=== PATIENT | female | born 1940 | race Two or more races ===

== ENCOUNTER 2017-06-18 23:17 | Inpatient (IN) | payer OTHER ==
[~2017-06-18] VITALS: Ht 154.9 cm; Wt 129.7 kg
[~2017-06-18 23:17] MED LIST: Atrovent 0.02% (0.5 MG/2.5 ML AMPUL) IH; BENZONATATE200 M1 PO; CARDIZEM CD 240 MG PO; CARDIZEM CD240 MG; CARDIZEM CD360 MG; CARTIA XT240 MG PO; CARdura 2MG TABLET PO; CARdura PO; CLOTRIMAZOLE10 MG MM; COMMODE; COUMADIN1 MG; COUMADIN2 MG; COUMADIN3 MG PO; COUMADIN5 MG PO; COUMAdin PO; COZAAR PO; Cozaar PO; DERMOPLAST TP; FLUCONAZOLE100 MG PO; FUROSEMIDE20 MG PO; GLIPIZIDE10 MG; GLIPIZIDE10 MG PO; HYDROCODONE-CHLORPH SUSP 115ML PO; HumaLOG 100 UNIT/1 ML (3ML) SUBCUTANEO; IMDUR 60MG60 MG; INDUSTRIAL EYE15 ML; ISOSORBIDE MONO30 MG PO; Imdur 30MG PO; Imdur 60MG PO; LANTUS100 U/ML; LASIX20 MG; LEVAQUIN D IV; LORATADINE10 MG PO; LOSARTAN POTASS50 MG PO; LOTRIMIN TP; Lantus 1000 U/10 ML SUBCUTANEO; Lasix 20MG TAB PO; METHYLPRED4 MG/DOSE- PO; METOLAZONE5 MG PO; NEURONTIN300 MG; NEURONTIN300 MG PO; NEURONTIN600 MG; Neurontin PO; Nystatin TP; ORPH100T PO; PANTOPRAZOLE SO40 MG PO; PROTONIX40 MG PO; Pulmicort 0.5 MG/2 ML AMPUL IH; QVAR7.3 G1 IH; SEPTRA DS TABLE1 TAB PO; SIMVASTATIN10 MG; SIMVASTATIN20 MG PO; TESSALON PERLE100 MG PO; TUSSI PRES-B L120 M1 PO; XARELTO 20MG TAB PO; Xopenex 0.63 MG/3 ML SOLUTION IH; ZANTAC300 MG; ZANTAC300 MG PO; ZAROXOLYN2.5 M1 PO; ZAROXOLYN5 M1; ZITHROMAX TRI-500 MG PO; ZOCOR PO; ZOCOR5 MG; ZOFRAN4 MG SL; Zaroxolyn PO; ZoCOR 20MG TABLET PO
[2017-06-25] MEDS ORDERED: Neurin-Sl Tablet Sl SL (10:57)
[2017-06-25] MEDS ORDERED: PANTOPRAZOLE SO40 MG PO (10:57)
[2017-06-25] MEDS ORDERED: METOLAZONE5 MG PO (10:57)
[2017-06-25] MEDS ORDERED: HYDRALAZINE HCL50 MG PO (10:57)
[2017-06-25] MEDS ORDERED: CARdura 2MG TABLET PO (10:57)
[2017-06-25] MEDS ORDERED: NEURONTIN300 MG PO (10:57)
[2017-06-25] MEDS ORDERED: ZANTAC300 MG PO (10:57)
[2017-06-25] MEDS ORDERED: CARTIA XT240 MG PO (10:57)
[2017-06-25] MEDS ORDERED: AVAPRO150 MG PO (10:57)
[2017-06-25] MEDS ORDERED: ISOSORBIDE DINI20 MG PO (10:57)
[2017-06-25] MEDS ORDERED: Lantus 1000 UNITS/10 SUBCUTANEO (10:57)
[2017-06-25] MEDS ORDERED: XARELTO15 MG PO (10:57)
[2017-06-25] MEDS ORDERED: SIMVASTATIN20 MG PO (10:57)
[2017-06-25] MEDS ORDERED: GLIPIZIDE10 MG PO (10:57)
== END 2017-06-25 16:19 | disposition home or self-care (01) | DRG 291 ==
LOC: ER 23:17 → SEC-K 06-19 12:19 → MEDJ 06-19 20:51 → SEC-K 06-19 20:56 → MEDI 06-20 20:40
PROC: 3E0F7GC Introduction of Other Therapeutic Substance into Respiratory Tract, Via Natural or Artificial Opening (ICD-10-PCS; principal; 2017-06-19)
PROC: 4A033R1 Measurement of Arterial Saturation, Peripheral, Percutaneous Approach (ICD-10-PCS; 2017-06-19)
PROC: 30233N1 Transfusion of Nonautologous Red Blood Cells into Peripheral Vein, Percutaneous Approach (ICD-10-PCS; 2017-06-19)
PROC: B246ZZZ Ultrasonography of Right and Left Heart (ICD-10-PCS; 2017-06-20)
PROC: 4A12X4Z Monitoring of Cardiac Electrical Activity, External Approach (ICD-10-PCS; 2017-06-21)
PROC: BW4GZZZ Ultrasonography of Pelvic Region (ICD-10-PCS; 2017-06-22)
PROC: BW40ZZZ Ultrasonography of Abdomen (ICD-10-PCS; 2017-06-22)
PROC: BW21ZZZ Computerized Tomography (CT Scan) of Abdomen and Pelvis (ICD-10-PCS; 2017-06-23)
DX: I13.0 Hypertensive heart and chronic kidney disease with heart failure and stage 1 through stage 4 chronic kidney disease, or unspecified chronic kidney disease (principal); I50.33 Acute on chronic diastolic (congestive) heart failure; J44.1 Chronic obstructive pulmonary disease with (acute) exacerbation; J45.31 Mild persistent asthma with (acute) exacerbation; K92.2 Gastrointestinal hemorrhage, unspecified; L03.115 Cellulitis of right lower limb; E11.65 Type 2 diabetes mellitus with hyperglycemia; Z79.4 Long term (current) use of insulin; I48.0 Paroxysmal atrial fibrillation; Z79.01 Long term (current) use of anticoagulants; E66.01 Morbid (severe) obesity due to excess calories; G47.33 Obstructive sleep apnea (adult) (pediatric); I27.29 Other secondary pulmonary hypertension; E11.22 Type 2 diabetes mellitus with diabetic chronic kidney disease; N18.1 Chronic kidney disease, stage 1; D63.1 Anemia in chronic kidney disease; R09.02 Hypoxemia; E78.2 Mixed hyperlipidemia; K21.9 Gastro-esophageal reflux disease without esophagitis; D50.0 Iron deficiency anemia secondary to blood loss (chronic); I87.2 Venous insufficiency (chronic) (peripheral)

== ENCOUNTER 2017-07-21 13:10 | Inpatient (IN) | payer OTHER ==
[~2017-07-21] VITALS: Ht 154.9 cm; Wt 136.1 kg
[~2017-07-21 13:10] MED LIST changes: +AVAPRO150 MG PO; +HYDRALAZINE HCL50 MG PO; +ISOSORBIDE DINI20 MG PO; +Lantus 1000 UNITS/10 SUBCUTANEO; +Neurin-Sl Tablet Sl SL; +XARELTO15 MG PO
[2017-08-03] MEDS ORDERED: CARdura 2MG TABLET PO (12:30)
[2017-08-03] MEDS ORDERED: Neurin-Sl Tablet Sl SL (12:30)
[2017-08-03] MEDS ORDERED: HYDRALAZINE HCL50 MG PO (12:30)
[2017-08-03] MEDS ORDERED: Lantus 1000 UNITS/10 SUBCUTANEO (12:30)
[2017-08-03] MEDS ORDERED: METOLAZONE2.5 MG PO (12:30)
[2017-08-03] MEDS ORDERED: XOPENEX0.63 MG/3 IH (12:30)
[2017-08-03] MEDS ORDERED: FUROSEMIDE20 MG PO (12:30)
[2017-08-03] MEDS ORDERED: AVAPRO150 MG PO (12:30)
[2017-08-03] MEDS ORDERED: SYMBICORT 16010.2 GM IH (12:30)
[2017-08-03] MEDS ORDERED: XARELTO15 MG PO (12:30)
[2017-08-03] MEDS ORDERED: ISOSORBIDE DINI20 MG PO (12:30)
[2017-08-03] MEDS ORDERED: NEURONTIN300 MG PO (12:30)
[2017-08-03] MEDS ORDERED: PANTOPRAZOLE SO40 MG PO (12:30)
[2017-08-03] MEDS ORDERED: SIMVASTATIN20 MG PO (12:30)
[2017-08-03] MEDS ORDERED: IPRATROPIU0.2 MG/1 M IH (12:30)
[2017-08-03] MEDS ORDERED: CARTIA XT240 MG PO (12:30)
== END 2017-08-03 19:11 | disposition home or self-care (01) | DRG 194 ==
LOC: ER 13:10 → SURH 18:26 → SEC-K 18:26 → SURH 07-23 05:08
PROC: 3E0F7GC Introduction of Other Therapeutic Substance into Respiratory Tract, Via Natural or Artificial Opening (ICD-10-PCS; principal; 2017-07-21)
PROC: 4A033R1 Measurement of Arterial Saturation, Peripheral, Percutaneous Approach (ICD-10-PCS; 2017-07-21)
PROC: 8E0ZXY6 Isolation (ICD-10-PCS; 2017-07-21)
DX: J09.X2 Influenza due to identified novel influenza A virus with other respiratory manifestations (principal); J44.1 Chronic obstructive pulmonary disease with (acute) exacerbation; J45.52 Severe persistent asthma with status asthmaticus; N39.0 Urinary tract infection, site not specified; I13.0 Hypertensive heart and chronic kidney disease with heart failure and stage 1 through stage 4 chronic kidney disease, or unspecified chronic kidney disease; I50.30 Unspecified diastolic (congestive) heart failure; G47.33 Obstructive sleep apnea (adult) (pediatric); E66.01 Morbid (severe) obesity due to excess calories; R09.02 Hypoxemia; I48.0 Paroxysmal atrial fibrillation; Z79.01 Long term (current) use of anticoagulants; N18.1 Chronic kidney disease, stage 1; E11.22 Type 2 diabetes mellitus with diabetic chronic kidney disease; B96.4 Proteus (mirabilis) (morganii) as the cause of diseases classified elsewhere; B96.20 Unspecified Escherichia coli [E. coli] as the cause of diseases classified elsewhere; D64.89 Other specified anemias; E11.65 Type 2 diabetes mellitus with hyperglycemia; I27.29 Other secondary pulmonary hypertension

== ENCOUNTER 2017-09-25 08:55 | Inpatient (IN) | payer OTHER ==
[~2017-09-25] VITALS: Ht 152.4 cm; Wt 113.4 kg
[~2017-09-25 08:55] MED LIST changes: +IPRATROPIU0.2 MG/1 M IH; +METOLAZONE2.5 MG PO; +SYMBICORT 16010.2 GM IH; +XOPENEX0.63 MG/3 IH
[2017-10-08] MEDS ORDERED: ELIQUIS5 MG PO (19:29)
[2017-10-08] MEDS ORDERED: FLUCONAZOLE100 MG PO (19:30)
[2017-10-08] MEDS ORDERED: B Complex CAPSULE PO (19:30)
[2017-10-08] MEDS ORDERED: PANTOPRAZOLE SO40 MG PO (19:30)
[2017-10-08] MEDS ORDERED: BENZONATATE100 MG PO (19:30)
[2017-10-08] MEDS ORDERED: MEDROLPACK PO (19:30)
[2017-10-08] MEDS ORDERED: LUBRIDERM DAIL177 ML TOP (19:30)
[2017-10-08] MEDS ORDERED: Tussi-Organidin Dm-S PO (19:30)
[2017-10-08] MEDS ORDERED: LOTRISONE CREAM45 GM TOP (19:30)
[2017-10-08] MEDS ORDERED: SUCRALFATE1 GM/10 ML PO (19:30)
== END 2017-10-08 21:00 | DRG 190 ==
LOC: ER 08:55 → MEDJ 14:11 → SEC-K 14:11 → MEDJ 15:51 → MEDI 15:51 → MEDJ 10-08 21:00
PROC: 30233N1 Transfusion of Nonautologous Red Blood Cells into Peripheral Vein, Percutaneous Approach (ICD-10-PCS; principal; 2017-09-25)
PROC: 3E0F7GC Introduction of Other Therapeutic Substance into Respiratory Tract, Via Natural or Artificial Opening (ICD-10-PCS; 2017-09-25)
PROC: 4A033R1 Measurement of Arterial Saturation, Peripheral, Percutaneous Approach (ICD-10-PCS; 2017-09-25)
PROC: 4A12X4Z Monitoring of Cardiac Electrical Activity, External Approach (ICD-10-PCS; 2017-09-25)
PROC: BD15YZZ Fluoroscopy of Upper GI using Other Contrast (ICD-10-PCS; 2017-09-30)
PROC: BD24YZZ Computerized Tomography (CT Scan) of Colon using Other Contrast (ICD-10-PCS; 2017-10-01)
PROC: B246ZZZ Ultrasonography of Right and Left Heart (ICD-10-PCS; 2017-10-02)
DX: J44.1 Chronic obstructive pulmonary disease with (acute) exacerbation (principal); I50.33 Acute on chronic diastolic (congestive) heart failure; I13.0 Hypertensive heart and chronic kidney disease with heart failure and stage 1 through stage 4 chronic kidney disease, or unspecified chronic kidney disease; J45.41 Moderate persistent asthma with (acute) exacerbation; B37.49 Other urogenital candidiasis; I48.0 Paroxysmal atrial fibrillation; Z79.01 Long term (current) use of anticoagulants; E66.01 Morbid (severe) obesity due to excess calories; I27.29 Other secondary pulmonary hypertension; G47.33 Obstructive sleep apnea (adult) (pediatric); K21.9 Gastro-esophageal reflux disease without esophagitis; E78.2 Mixed hyperlipidemia; R09.02 Hypoxemia; E11.22 Type 2 diabetes mellitus with diabetic chronic kidney disease; I87.2 Venous insufficiency (chronic) (peripheral); D63.1 Anemia in chronic kidney disease; B95.2 Enterococcus as the cause of diseases classified elsewhere; N18.3 Chronic kidney disease, stage 3 (moderate)